=== PATIENT | female | born 1945 | race Two or more races ===

== ENCOUNTER 2022-09-20 11:59 | Emergency (ER) | payer OTHER ==
[~2022-09-20] VITALS: Ht 160 cm; Wt 67.6 kg
[~2022-09-20 11:59] MED LIST: ASPIR 8181 MG PO; GLUCOPHAGE XR500 MG PO; NORVASC5 MG PO
[2022-09-20] MEDS ORDERED: HYDRALAZINE HCL25 MG (13:00)
[2022-09-20] MEDS ORDERED: ZESTRIL10 M1 (13:00)
[2022-09-20] MEDS ORDERED: LEVOXYL88 MCG (13:00)
[2022-09-20] MEDS ORDERED: TRADJENTA5 MG (13:00)
[2022-09-20] MEDS ORDERED: HORIZANT300 MG (13:01)
[2022-09-20] MEDS ORDERED: CRESTOR20 MG (13:01)
== END 2022-09-20 20:07 | disposition home or self-care (01) ==
LOC: ER 11:59
DX: S00.93XA Contusion of unspecified part of head, initial encounter (principal); S60.221A Contusion of right hand, initial encounter; W18.30XA Fall on same level, unspecified, initial encounter; Y93.9 Activity, unspecified; Y92.018 Other place in single-family (private) house as the place of occurrence of the external cause; Y99.9 Unspecified external cause status; E11.9 Type 2 diabetes mellitus without complications; Z79.84 Long term (current) use of oral hypoglycemic drugs; I10 Essential (primary) hypertension; E03.9 Hypothyroidism, unspecified; Z88.8 Allergy status to other drugs, medicaments and biological substances